=== PATIENT | male | born 1950 | race Hispanic/Latino ===

== ENCOUNTER → 2023-05-28 | Outpatient (CLI) | payer OTHER ==
[~2023-05-28] MED LIST: EPHEDRINE SULFATE 50 MG/ML AMPULE ONE; FENTANYL CITRATE PF 50 MCG/1 ML 2ML VIAL ONE; KETOROLAC 30MG VIAL (30MG/ML) ONE; LIDOCAINE PF 100MG/5ML (2%) SYRINGE 5ML ONE; MIDAZOLAM HCL 1 MG/ML 2ML VIAL ONE; ONDANSETRON 4MG INJ ONE; PROPOFOL 10 MG/ML 20ML VIAL IV ONE; REGADENOSON 0.4 MG/5 ML PF SYG IVP ONE
== END | disposition home or self-care (01) ==
LOC: SHCH 08:27
PROVIDERS: ATTEND Internal Medicine Cardiovascular Disease
DX: I47.29 Other ventricular tachycardia (principal); R00.2 Palpitations; I63.9 Cerebral infarction, unspecified; I10 Essential (primary) hypertension; E11.9 Type 2 diabetes mellitus without complications; Z79.84 Long term (current) use of oral hypoglycemic drugs; Z79.899 Other long term (current) drug therapy
CPT/HCPCS: 78452; 96374; 93017; J2785; A9500 ×2